=== PATIENT | female | born 1990 | race Caucasian/White ===

== ENCOUNTER 2019-11-19 04:01 | Emergency (ER) | payer SELFPAY ==
[2019-11-19 05:40] LABS: ABSOLUTE EOSINOPHILS # (AUTO) 0.1 10^3/uL (0.0-0.6); ABSOLUTE LYMPHOCYTES (AUTO) 3.4 10^3/uL (0.5-4.7); ABSOLUTE NEUT (AUTO) 7.5 10^3/uL (1.7-8.2); BASOPHILS % (AUTO) 0.3 % (0-2); EOSINOPHILS % (AUTO) 1.1 % (0-6); HEMATOCRIT 37.9 % (36.0-47.0); HEMOGLOBIN 12.8 g/dL (12.0-15.5); LYMPHOCYTES % (AUTO) 28.2 % (13-45); MEAN CORPUSCULAR HEMOGLOBIN 29.1 pg (27.0-33.4); MEAN CORPUSCULAR HGB CONC 33.7 g/dL (32.0-36.0); MEAN CORPUSCULAR VOLUME 86 fl (80-97); PLATELET COUNT 300 10^3/uL (150-450); RED BLOOD COUNT 4.39 10^6/uL (3.72-5.28); RED CELL DISTRIBUTION WIDTH 13.4 % (11.5-14.0); SEGMENTED NEUTROPHILS % (AUTO) 62.4 % (42-78); TOTAL CELLS COUNTED % (AUTO) 100 %
--- NOTE | 2019-11-19 05:56 | RADIOLOGY REPORT (SQ) ---
PA and lateral chest radiograph: 11/19/2019 4:53 AM CDT Comparison: None available Indication: 28-year old patient with chest pain. Findings: The cardiomediastinal silhouette is normal in size.No pneumothorax is seen. No acute airspace opacities are seen. No discrete pleural effusion is apparent. Surgical clips are seen overlying the right upper quadrant of the abdomen, consistent with a previous cholecystectomy. Impression: No acute airspace opacities are seen.
[2019-11-19 06:04] LABS: ALBUMIN 4.2 g/dL (3.5-5.0); ALKALINE PHOSPHATASE 88 U/L (38-126); ANION GAP 8 (5-19); ASPARTATE AMINO TRANSFERASE 20 U/L (14-36); BILIRUBIN,TOTAL 0.3 mg/dL (0.2-1.3); BLOOD UREA NITROGEN 15 mg/dL (7-20); CALCIUM 9.3 mg/dL (8.4-10.2); CARBON DIOXIDE 25 mmol/L (22-30); CHLORIDE 105 mmol/L (98-107); CREATINE KINASE 77 U/L (30-135); GLUCOSE 102 mg/dL (75-110); POTASSIUM 3.8 mmol/L (3.6-5.0); TOTAL PROTEIN 7.7 g/dL (6.3-8.2)
[2019-11-19 06:19] LABS: CREATINE KINASE MB 0.36 ng/mL (<4.55)
[2019-11-19 06:20] LABS: TROPONIN I < 0.012 ng/mL
[2019-11-19] MEDS ORDERED: ACETAMINOPHEN 325 MG TABLET PO ONE (07:56)
--- NOTE | 2019-11-19 09:27 | RADIOLOGY REPORT (SQ) ---
EXAM DESCRIPTION: CT HEAD WITHOUT IMAGES COMPLETED DATE/TIME: 11/19/2019 8:55 am REASON FOR STUDY: headache/right upper ext numbness COMPARISON: None. TECHNIQUE: Axial images acquired through the brain without intravenous contrast. Images reviewed wi th bone, brain and subdural windows. Additional sagittal and coronal reconstructions were generated. Images stored on PACS. All CT scanners at this facility use dose modulation, iterative reconstruction, and/or weight based d osing when appropriate to reduce radiation dose to as low as reasonably achievable (ALARA). [facility]: Dose Right [facility]: CareDose [facility]: Dose Right [facility]: Teradose 4D [facility]: Smart [employer] RADIATION DOSE: CT Rad equipment meets quality standard of care and radiation dose reduction techniq ues were employed. CTDIvol: 53.2 mGy. DLP: 937 mGy-cm. mGy. LIMITATIONS: None. FINDINGS: VENTRICLES: Normal size and contour. CEREBRUM: No masses. No hemorrhage. No midline shift. No evidence for acute infarction. Normal gra y/white matter differentiation. No areas of low density in the white matter. CEREBELLUM: No masses. No hemorrhage. No alteration of density. No evidence for acute infarction. EXTRAAXIAL SPACES: No fluid collections. No masses. ORBITS AND GLOBE: No intra- or extraconal masses. Normal contour of globe without masses. CALVARIUM: No fracture. PARANASAL SINUSES: No fluid or mucosal thickening. SOFT TISSUES: No mass or hematoma. OTHER: No other significant finding. IMPRESSION: NORMAL BRAIN CT WITHOUT CONTRAST. EVIDENCE OF ACUTE STROKE: NO. COMMENT: Quality ID # [id number]: Final reports with documentation of one or more dose reduction techniques (e.g., Automated exposure control, adjustment of the mA and/or kV according to patient size, use of iterative reconstruction technique) TECHNICAL DOCUMENTATION: JOB ID: [id number] 2010 [employer]- All Rights Reserved Reading location - IP/workstation name: [email or web address]
[2019-11-19] MEDS ORDERED: IBUPROFEN 800 MG TABLET PO ONE (09:42)
--- NOTE | 2019-11-19 09:42 | ER Document Report ---
Entered by MENDOZA SHARIF SCRIBE 11/19/19 0851 Acting as scribe for:AYESHA COLEMAN MD ED General - General Chief Complaint: Numbness of Arm Stated Complaint: NUMBNESS RIGHT HAND Time Seen by Provider: 11/19/19 07:50 Information source: Patient Notes: This 28 year old female patient presents to the emergency department today with complaints of chest pain. Patient states the chest pain lasts x3/4 seconds and has occurred x2 times the past x2 months. Patient states the last episode of chest pain was yesterday and occurred while she was sitting watching TV. Patient states her right arm felt different after and could not hold her phone properly. Patient states he has a headache ranked a 8/10. Patient states she has headaches sometimes and Advil relieves this. - Related Data Allergies/Adverse Reactions: No Known Allergies Allergy (Verified 11/19/19 06:01) Past Medical History - General Information source: Patient - Social History Smoking Status: Never Smoker Cigarette use (# per day): No Family History: Other - Heart Attack - Mother Patient has homicidal ideation: No Past Surgical History: Reports: Hx Section - x3 Review of Systems - Review of Systems Constitutional: No symptoms reported EENT: No symptoms reported Cardiovascular: See HPI, Chest pain Respiratory: No symptoms reported Gastrointestinal: No symptoms reported Genitourinary: No symptoms reported Female Genitourinary: No symptoms reported Musculoskeletal: No symptoms reported Skin: No symptoms reported Hematologic/Lymphatic: No symptoms reported Neurological/Psychological: See HPI, Headaches, Other - R arm weak -: Yes All other systems reviewed and negative Physical Exam - Vital signs Vitals: Temp Pulse Resp BP Pulse Ox 98.7 F 94 16 122/68 98 11/19/19 04:09 11/19/19 04:09 11/19/19 04:09 11/19/19 04:09 11/19/19 04:09 - General General appearance: Appears well, Alert - HEENT Head: Normocephalic, Atraumatic Eyes: Normal Pupils: PERRL Ears: Normal External canal: Normal Tympanic membrane: Bulging - bilateral, Serous effusion - bilateral Sinus: Other - No frontal tenderness Nasal: Normal Pharynx: Normal Neck: Normal, Supple - Respiratory Respiratory status: No respiratory distress Chest status: Nontender Breath sounds: Normal Chest palpation: Normal - Cardiovascular Rhythm: Regular Heart sounds: Normal auscultation, S1 appreciated, S2 appreciated Murmur: No - Abdominal Inspection: Normal - Soft, Obese Distension: No distension Bowel sounds: Normal Tenderness: Nontender - Extremities General upper extremity: Normal inspection. No: Edema General lower extremity: Normal inspection. No: Edema - Neurological Neuro grossly intact: Yes Cognition: Normal Orientation: AAOx4 [place] Coma Scale Eye Opening: Spontaneous [place] Coma Scale Verbal: Oriented [place] Coma Scale Motor: Obeys Commands [place] Coma Scale Total: 15 Speech: Normal Cranial nerves: Normal Cerebellar coordination: Normal Motor strength normal: LUE, RUE, LLE, RLE Sensory: Normal - Psychological Associated symptoms: Normal affect, Normal mood - Skin Skin Temperature: Warm Skin Moisture: Dry Skin Color: Normal Course - Re-evaluation Re-evalutation: 11/19/19 09:35 Patient asleep but easily aroused showing no signs of any neurological ab normality. 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 CT scan of head shows no acute process no evidence for stroke. Patient laboratories are not showing any signs of infection, inflammation. 11/19/19 09:36 - Vital Signs Vital signs: Temp Pulse Resp BP Pulse Ox 98.7 F 85 13 120/71 95 11/19/19 04:09 11/19/19 06:02 11/19/19 09:01 11/19/19 08:31 11/19/19 09:01 - Laboratory Result Diagrams: 11/19/19 04:54 11/19/19 04:54 Laboratory results interpreted by me: 11/19/19 04:54 WBC 12.0 H 11/19/19 09:36 Mild elevation in white blood cell count of 12. Otherwise labs within normal limits. - Diagnostic Test Radiology reviewed: Image reviewed, Reports reviewed Radiology results interpreted by me: 11/19/19 09:37 CT head shows no acute process no evidence of stroke. Chest x-ray shows no acute process no infiltrate. - EKG Interpretation by Me Additional EKG results interpreted by me: 11/19/19 09:37 Twelve-lead EKG shows normal sinus rhythm rate of 88. No acute changes. Discharge - Discharge Clinical Impression: Viral labyrinthitis of both ears, Headache, Paresthesia of right upper extremity Condition: Stable Disposition: HOME, SELF-CARE Instructions: Labyrinthitis ([facility]), Meclizine ([facility]) Additional Instructions: Labyrinthitis Labyrinthitis is a temporary disease of the inner ear. It's sometimes called vestibulitis. It often starts a few days after a cold or virus infection. Symptoms include vertigo (the spinning type of dizziness) or a sense of unsteadiness and nausea. The symptoms usually go away in a couple of days with out any treatment. You should rest and keep your head still. The dizziness is worse if you move your head. Closing the eyes usually helps. Don't drive, work with dangerous machinery, or get up on ladders or scaffolds until a few days after the dizziness resolves. Medicine such as meclizine (Antivert, Bonine) can reduce the dizziness and nausea. Tranquilizers (such as diazepam) can suppress your sense of balance, reducing the unpleasantness of the vertigo. Call or return if you develop ear pain, loss of hearing, fever, severe vomiting, or any other new symptom. Headache The physician does not feel that the headache you are experiencing has a serious underlying cause. Most headaches are due to emotional stress, with resultant muscle tension (tension headache). Occasionally, headaches are secondary to changes in the blood vessels of the scalp (vascular headache and migraine headache). Sometimes, a headache is the first symptom of another developing illness, such as a viral infection. You have no evidence of stroke, bleeding, meningitis, or other serious cause of your headache. The treatment of headaches varies with the severity and cause of the pain. Not all headaches need pain shots. In fact, there is evidence that using narcotics for headaches may make them worse in the long run. The physician will determine the therapy that's in your best interest. If you develop a fever, if the headache is different from any you've previously experienced, or if the headache progressively worsens, then call your physician at once or go to the emergency room. Prescriptions: Meclizine HCl [Antivert 25 mg Tablet] 25 mg PO TID PRN #21 tablet PRN Reason: Ibuprofen [Motrin 800 mg Tablet] 800 mg PO Q8H PRN #30 tab PRN Reason: pain Forms: Elevated Blood Pressure I personally performed the services described in the documentation, reviewed and edited the documentation which was dictated to the scribe in my presence, and it accurately records my words and actions.
[2019-11-19] MEDS ORDERED: MECLIZINE HCL 25 MG TABLET PO ONE (09:43)
[2019-11-19 10:05] VITALS: BP 114/60
--- NOTE | 2019-11-19 12:04 | EKG REPORT ---
SEVERITY:- NORMAL ECG - SINUS RHYTHM : Confirmed by: Valerie Dupont MD 19-Nov-2019 12:03:19
== END 2019-11-19 10:04 | disposition home or self-care (01) ==
LOC: ER 04:01
DX: H83.03 Labyrinthitis, bilateral (principal); R20.0 Anesthesia of skin; R51 Headache; R07.9 Chest pain, unspecified
CPT/HCPCS: 36415; 70450; 71046; 80053; 82550; 82553; 84484; 85025; 93005; 93010; 99284